=== PATIENT | male | born 1970 | race Caucasian/White ===

== ENCOUNTER 2020-01-15 06:32 | Day surgery (SDC) | payer OTHER ==
[2020-01-09 15:15] LABS: Absolute Lymphocytes (CBC) 1.5 K/uL (0.7-4.9); Basophils % 0.2 % (0-1.3); Lymphocytes % 20.8 % (15.3-44.8); MPV 8.6 fL (7.6-11.3); RBC Red Blood Cell Count 4.66 M/uL (4.33-5.43)
--- NOTE | 2020-01-09 15:24 | RAD REPORT ---
EXAM DESCRIPTION: RAD - Chest Pa And Lat (2 Views) - 01/09/2020 3:11 pm CLINICAL HISTORY: pre op Chest pain. COMPARISON: No comparisons FINDINGS: The lungs are clear. The heart is normal in size. No displaced fractures. IMPRESSION: No acute or concerning finding suspected.
[2020-01-09 15:31] LABS: Potassium 4.1 mmol/L (3.5-5.1)
--- OUTSIDE RECORDS SUMMARY | 2020-01-15 06:34 | XMS REPORT | Continuity of Care Document ---
:1970 Author Organization [facility] Information [facility] Care Team Providers Name Role Phone [facility] Information Tele[facility] Group Unavailable Un available Problems Problem Status Onset Classification Date Comments Sourc e Date Reported LT RC TEAR; LT Active SM R SHOULDER 7 [place] Fracture Active Problem 01/22/2015 [place] (morphologic abnormality) Generalized Active Problem 01/22/2015 [place] aches and pains (finding) Seizure Active Problem 01/22/[place] (finding) WRIST PAIN Active [place] Medications No Data Provided for This Section Allergies, Adverse Reactions, Alerts No Known Medication Allergies Immunizations No Data Provided for This Section Results No Data Provided for This Section Pathology Reports No Data Provided for This Section Diagnostic Reports Report Value Date Source Wrist complete DX RIGHT WRIST, 4 views 01/19/2015 [place] HISTORY: Trauma - injury to the right wrist. History of fall last night. Right wrist pain. TECHNIQUE: Frontal, lateral, and oblique radiographs of the right wrist were obtained. An ulnar deviation view was also obtained. FINDINGS: The joint spaces a re well maintained. There is no evidence of fracture, dislocation, or other osteoarticular abnormality. There are no degenerative changes. CONCLUSION: 1. Negative right wrist. SL: 16 Tej Modi M.D. Consultation Notes No Data Provided for This Section Discharge Summaries No Data Provided for This Section History and Physicals No Data Provided for This Section Vital Signs No Data Provided for This Section Encounters Location Location Encounter Encounter Reason Attending ADM DC Stat us Source Details Type Number For Provider Date Date Visit [facility] [id number] Tunde Douglass 01/19 01/20 [facility] /2014 [facility] Outpatient [id number] Waldem[place] 01/19 Active [facility] Procedures No Data Provided for This Section Assessment and Plan No Data Provided for This Section Plan of Care No Data Provided for This Section Social History Social History Date Source No data available for this 01/20/2015 [facility] section Family History No Data Provided for This Section Advance Directives No Data Provided for This Section Functional Status No Data Provided for This Section
[2020-01-15] MEDS ORDERED: CEFAZOLIN/SWI 1gm 1 GM/10 ML SYR ONE (07:02)
[2020-01-15] MEDS ORDERED: FENTANYL CITR 100 MCG/2 ML ONE ×2 (07:21→08:44)
[2020-01-15] MEDS ORDERED: propofoL 200 MG/20 ML VIAL IV ONE (07:21)
[2020-01-15] MEDS ORDERED: MIDAZOLAM HCL 2 MG/2 ML INJ ONE (07:22)
[2020-01-15] MEDS ORDERED: ROCURONIUM 50 MG/5 ML VIAL IV ONE (07:22)
[2020-01-15] MEDS ORDERED: LIDOCAINE 1% MPF 5 ML VIAL ONE (07:22)
[2020-01-15] MEDS ORDERED: KETOROLAC 30 MG/ML INJ ONE (08:09)
[2020-01-15] MEDS ORDERED: dexAMETHasone 4 MG/ML VIAL ONE (08:10)
[2020-01-15] MEDS ORDERED: ONDANSETRON 4 MG/2 ML VIAL ONE ×2 (08:10→09:11)
[2020-01-15] MEDS: Ringers Lactate 1,000 ML IV ONE ×2 (08:10→08:51)
[2020-01-15] MEDS ORDERED: NEOSTIGMINE 1 MG/ML -5 ML ONE (08:20)
[2020-01-15] MEDS ORDERED: GLYCOPYRROLATE 0.2 MG/ML SYR ONE ×3 (08:21→08:27)
--- NOTE | 2020-01-15 08:31 | P.BOP ---
Preoperative diagnosis: tender right inguinal hernia Postoperative diagnosis: same Primary procedure: Laparoscopic repair of tender right inguinal hernia with mesh reducible Estimated blood loss: <5cc Specimen: hernia sac direct Findings: direct and indirect hernias right inguinal Anesthesia: General Complications: None Transferred to: Recovery Room Condition: Good
[2020-01-15] MEDS: HYDROMORPHONE HCL 1 MG/ML INJ ONE ×4 (08:55→09:10)
[2020-01-15] MEDS ORDERED: Ringers Lactate 1,000 ML IV ONE (09:04)
[2020-01-15] MEDS ORDERED: HYDROCODONE/APAP 5/325 MG TAB ONE (10:07)
--- NOTE | 2020-01-15 10:11 | OP ---
Date of Procedure: 01/15/2020 Surgeon: Felix Dean MD Preoperative Diagnosis: Tender right inguinal reducible hernia. Postoperative Diagnosis: Tender right inguinal reducible hernia. Procedure: Laparoscopic repair of tender right inguinal hernia with mesh. Specimen: Hernia sac. Findings: Direct and indirect sac. Anesthesia: General plus local. Mesh: 3D medium mesh right side. Indications: This is the case of a 49-year-old patient comes to us complaining of a tender right ing uinal hernia. Benefits, alternatives, and risks of laparoscopic repair versus open fully explained t o the patient which include, but not limited to infection, bleeding, damage to adjacent structures, a nesthesia complication, recurrence, WI and even . He also understands this may not relieve any symptoms. He might need more than one surgical intervention. He also understands we may be using me sh in that region. Pros and cons of mesh placed was discussed with the patient and he did consent fo r the use of mesh. Procedure In Detail: The patient was brought to the operating room and placed in supine position. A nesthesia was done without complication. Abdominal and inguinal area was prepped and draped in usual sterile fashion. Local anesthesia was applied after time-out was called. The patient was placed in Trendelenburg position with right side up. An incision was made on the infraumbilical region. Inci toni was carried down until we found the anterior rectus sheath that was opened on the right side. M uscle retracted laterally to expose the posterior rectus sheath. The extraperitoneal space was gentl y developed with the help of blunt dissection. A space maker balloon tipped trocar was placed direct ed toward the pubic symphysis. The scope was placed in under direct visualization. We proceeded to inflate the balloon. After that, we removed the balloon, insufflated the area. At that moment, I pr oceeded to place a 5 mm trocar just at the area just above the pubic symphysis and another one halfwa y between the first and the second one. The preperitoneal space was further developed by exposing th e inferior epigastric vessels and keeping anterior. Jesus's ligament was dissected laterally to the junction with the iliac veins. Dissection continued inferiorly to the iliopubic tract avoiding vitaly ge to the femoral branch of the genitofemoral nerve and lateral femoral cutaneous nerve. The cord st ructures were skeletonized and we found 2 hernias. First we found an indirect hernia, so carefully t he spermatic cord structures were skeletonized. The hernia was removed from the spermatic cord struc tures gently and reduced back into the abdominal cavity. We also found an another hernia direct sheila ia and that direct hernia was reduced by gentle traction and that hernia sac was excised. The area w as visualized. No bleeding. At that moment, I proceeded to introduce a 3D mesh of medium size throu gh the trocar site and put in the working space. The mesh was placed to cover direct and indirect sp aces. The mesh was secured in place with SorbaFix lateral and superior to the iliopubic tract and in feromedial to the Jesus's ligament. We sprayed some local anesthetic over the area. We examined th e area. Both defects were covered, hernia sac still reduced. At that moment, I proceeded to deflate the area holding the mesh in place and then removed the trocars under direct visualization. Anterio r rectus sheath was closed with a #1 Vicryl and the skin was closed in a subcuticular fashion with 3- 0 chromic and Steri-Strips. The patient tolerated the procedure well. The patient was sent to [facility] in stable condition. Sponge count and instrument counts were correct at the end of the case. Te sticles within the scrotum. AIDA/HERIBERTO Voice ID: [id number] Report ID: [id number]
--- NOTE | 2020-01-15 10:17 | DS ---
Diagnosis: Right inguinal hernia. Procedure: Laparoscopic repair of right inguinal hernia with mesh. Disposition: Home. Activity: As tolerated. No heavy lifting. Plan: Follow up in my office in 1 week. Call for appointment at [phone]. Keep area dry for 48 hour s, then may shower. Keep Steri-Strip intact. Use cold compress over the right inguinal region. Medications: Include hydrocodone q. 4 hours p.r.n. pain. King POON p.o. b.i.d. AIDA/HERIBERTO Voice ID: [id number] Report ID: [id number]
[2020-01-15 10:59] VITALS: O2SAT 99
[2020-01-15 12:53] VITALS: BP 122/78; TEMP 98.2
== END 2020-01-15 13:55 | disposition home or self-care (01) ==
LOC: OR 06:32
PROVIDERS: ATTEND Surgery
PROC: 0YU54JZ Supplement Right Inguinal Region with Synthetic Substitute, Percutaneous Endoscopic Approach (ICD-10-PCS; principal; 2020-01-15 07:30)
DX: K40.90 Unilateral inguinal hernia, without obstruction or gangrene, not specified as recurrent (principal); Z20.828 Contact with and (suspected) exposure to other viral communicable diseases
CPT/HCPCS: 93005; 85025; 80048; 36415; 88302; 71046; 49650; U0002; J2704; J1100; J2250; J3010 ×2; J1170 ×2; J2710; J0690; J7120 ×2; J2405 ×2